=== PATIENT | male | born 1990 | race Caucasian/White ===

== ENCOUNTER 2019-01-06 16:08 | Inpatient (IN) | payer BC ==
[~2019-01-06] VITALS: Ht 167.6 cm; Wt 53.3 kg
[2019-01-06] VITALS (9 sets, daily range): BP systolic 114–131; BP diastolic 63–79
[2019-01-06] MEDS ORDERED: HOLD METFORMIN - RECEIVED CONTRAST 20 ML VIAL IV SCH (16:45)
[2019-01-06] MEDS ORDERED: NS 100 ML (IVPB) BAG IV ONE (16:45)
[2019-01-06] MEDS ORDERED: CATHETER FLUSH 10 ML SYR IV PRN ×2 (16:45→17:00)
[2019-01-06] MEDS ORDERED: IOHEXOL 350 MG/ML 100 ML (OMNIPAQUE 350) VIAL IV ONE (16:45)
[2019-01-06] MEDS ORDERED: HYDROcodone/APAP 7.5 MG/325 MG (LORTAB, LORCET PLUS) TABLET PO PRN (17:00)
[2019-01-06] MEDS ORDERED: ACETAMINOPHEN 325 MG TABLET PO PRN (17:00)
[2019-01-06] MEDS ORDERED: fentaNYL INJECTION 100 MCG/2 ML AMP IV PRN (17:00)
[2019-01-06] MEDS ORDERED: ONDANSETRON 4 MG/2 ML (SDV) Z0FRAN IV PRN (17:00)
[2019-01-06 17:17] LABS: BASOPHILS % (AUTO) 0 % (0-10); EOSINOPHILS % (AUTO) 0 % (0-10); HEMATOCRIT 42 % (40-54); HEMOGLOBIN 14.7 G/DL (13.3-17.7); LYMPHOCYTES # (AUTO) 0.8 X 10^3 (1.0-4.0); LYMPHOCYTES % (AUTO) 9 % (12-44); MEAN CORPUSCULAR HEMOGLOBIN 30 PG (25-34); MEAN CORPUSCULAR HGB CONC 35 G/DL (32-36); MEAN CORPUSCULAR VOLUME 87 FL (80-99); MEAN PLATELET VOLUME 8.9 FL (7.4-10.4); MONOCYTES # (AUTO) 0.7 X 10^3 (0.0-1.0); MONOCYTES % (AUTO) 8 % (0-12); NEUTROPHILS # (AUTO) 7.2 X 10^3 (1.8-7.8); NEUTROPHILS % (AUTO) 83 % (42-75); PLATELET COUNT 159 10^3/uL (130-400); RED CELL DISTRIBUTION WIDTH 12.2 % (10.0-14.5); WHITE BLOOD COUNT 8.7 10^3/uL (4.3-11.0)
[2019-01-06 17:33] LABS: BUN/CREATININE RATIO 11; CALCIUM 9.9 MG/DL (8.5-10.1); CARBON DIOXIDE 28 MMOL/L (21-32); CHLORIDE 101 MMOL/L (98-107); CREATININE SERUM 0.84 MG/DL (0.60-1.30); GFR ESTIMATED > 60; GLUCOSE 99 MG/DL (70-105); POTASSIUM 3.8 MMOL/L (3.6-5.0); SODIUM 140 MMOL/L (135-145)
[2019-01-06] MEDS: CIPROFLOXACIN IV 400MG/200ML 200 ML IV SCH (17:44)
[2019-01-06] MEDS: LACTATED RINGERS 1,000 ML IV SCH ×2 (17:44→23:09)
--- NOTE | 2019-01-06 17:45 | Diagnostic Imaging Report ---
PROCEDURE: CT abdomen and pelvis with contrast, rule out appendicitis. TECHNIQUE: Multiple contiguous axial images were obtained through the abdomen and pelvis after the administration of intravenous contrast. INDICATION: Right lower quadrant pain with nausea, vomiting, and diarrhea. COMPARISON: No comparison is available. FINDINGS: The lung bases are clear. There is no infiltrate or effusion. The liver demonstrates no evidence of a focal intrahepatic abnormality. The gallbladder is nondistended. There are no radiodense gallstones or biliary dilatation. The portal veins are patent. The spleen is unremarkable. Pancreas demonstrates no focal abnormality or ductal dilatation. There is no adrenal mass. The kidneys enhance normally and are nonobstructed. Small and large bowel are normal in caliber without evidence of obstruction. The appendix is abnormally dilated and also contains an appendicolith with adjacent inflammatory fat stranding. There is free fluid within the pelvis. There is no definable encapsulated abscess but the findings are compatible with acute appendicitis and may reflect a ruptured appendix given the pelvic free fluid. Urinary bladder is unremarkable. Prostate is unremarkable. There are no pathologically enlarged lymph nodes. There is no free air. The aorta is normal in caliber. IMPRESSION: 1. Findings compatible with an acute appendicitis. The appendix is abnormally enlarged with mucosal hyperenhancement and adjacent inflammatory fat stranding. There is an appendicolith within the appendix. There is no obstruction or free air. There is free fluid within the pelvis which may reflect a ruptured appendix. There is no encapsulated or definable abscess. Dictated by: Dictated on workstation # [id number]
--- NOTE | 2019-01-06 18:33 | Progress Note-Pre Operative ---
Pre-Operative Progress Note H&P Reviewed The H&P was reviewed, patient examined and no changes noted. Date Seen by Provider: Jan 06, 2019 Time Seen by Provider: 18:00 Date H&P Reviewed: Jan 06, 2019 Time H&P Reviewed: 18:00 Pre-Operative Diagnosis: acute appendicitis DEN BAKER MD Jan 06, 2019 18:33
[2019-01-06] MEDS ORDERED: ROCURONIUM 10 MG/ML 5 ML SYRINGE IV ONE (19:21)
[2019-01-06] MEDS ORDERED: SUCCINYLCHOLINE INJ 100 MG/5 ML SYR ONE (19:21)
[2019-01-06] MEDS ORDERED: proPOfol 200 MG/20 ML (DIPRIVAN) VIAL IV ONE (19:21)
[2019-01-06] MEDS ORDERED: fentaNYL INJECTION 100 MCG/2 ML AMP ONE (19:22)
[2019-01-06] MEDS ORDERED: MIDAZOLAM 2 MG/2 ML (VERSED) VIAL ONE (19:22)
[2019-01-06] MEDS ORDERED: BUP/EPI 0.5% 1:200,000 (SENSORCAINE) 30 ML VIAL ONE (19:24)
[2019-01-06] MEDS ORDERED: SEVOFLURANE (ULTANE) 15 ML INHAL SOLN ONE (19:26)
[2019-01-06] MEDS ORDERED: LIDOCAINE PF 2% 5 ML (XYLOCAINE) VIAL ONE (19:27)
[2019-01-06] MEDS ORDERED: DEXAMETHASONE 10 MG/ML (DECADRON) 1 ML VIAL ONE (19:27)
[2019-01-06] MEDS ORDERED: ONDANSETRON 4 MG/2 ML (SDV) Z0FRAN ONE (19:27)
[2019-01-06] MEDS ORDERED: LACTATED RINGERS 1,000 ML IV PRN (19:47)
[2019-01-06] MEDS: metroNIDAZOLE 500MG/100ML IVPB 100 ML IV SCH (20:15)
[2019-01-06] MEDS ORDERED: NEOSTIGMINE 3 MG/3 ML VIAL ONE (20:30)
[2019-01-06] MEDS ORDERED: GLYCOPYRROLATE 0.2 MG/ML (ROBINUL) 2 ML VIAL ONE (20:30)
[2019-01-06] MEDS ORDERED: KETOROLAC 30 MG/ML VIAL ONE (20:33)
--- NOTE | 2019-01-06 21:01 | Progress Note-Post Operative ---
Post-Operative Progess Note Surgeon (s)/Outgoing Inspector (s) Surgeon DEN BAKER MD Outgoing Inspector: layo zamora ACUTE CARE SURGEON Pre-Operative Diagnosis acute appendicitis Post-Operative Diagnosis same, with walled off microperforation Procedure & Operative Findings Date of Procedure 01/06/19 Procedure Performed/Findings laparoscopic appendectomy Anesthesia Type GET Estimated Blood Loss Estimated blood loss (mL): minimal Specimens/Packing Specimens Removed appendix DEN BAKER MD Jan 06, 2019 21:01
[2019-01-06] MEDS ORDERED: HYDR-34 PO (21:03)
[2019-01-06] MEDS ORDERED: AMOX-358 PO (21:03)
--- NOTE | 2019-01-06 21:06 | Discharge Inst-Surgical ---
D/C Lap Instructions-OLIVIA New, Converted, or Re-Newed RX: RX on Chart Follow Up next week thursday or thursday. Activity as tolerated No driving for 24 hours No driving while on pain medications Incentive Spirometry use every 2 hours while awake Regular Diet Symptoms to Report: Fever over 101 degree F, Nausea/Vomiting Infection Signs and Symptoms to report: Increased redness, Foul odor of wound, Increased drainage Bathing instructions: May shower Operative Area Clean/Dry; Keep incision clean/dry If any problems/questions: Contact your physician or go to Emergency Room DEN BAKER MD Jan 06, 2019 21:05
[2019-01-06] MEDS ORDERED: HYDROmorphone 2 MG/ML VIAL (DILAUDID) IV ONE (21:30)
[2019-01-06] MEDS ORDERED: ONDANSETRON 4 MG/2 ML (SDV) Z0FRAN IVP PRN (21:30)
--- NOTE | 2019-01-06 22:10 | NUR ---
PT. BACK FROM [facility] VIA CART. VITAL SIGNS TAKEN, NO COMPLAINTS AT THIS TIME.
[2019-01-07] VITALS: BP 114/69
[2019-01-07 04:00] VITALS: BP 104/66
[2019-01-07] MEDS: CIPROFLOXACIN IV 400MG/200ML 200 ML IV SCH (04:42)
[2019-01-07] MEDS: metroNIDAZOLE 500MG/100ML IVPB 100 ML IV SCH (06:58)
[2019-01-07 08:02] VITALS: BP 117/70
--- NOTE | 2019-01-07 09:06 | OPERATIVE REPORT ---
DATE OF SERVICE: 01/06/2019 PREOPERATIVE DIAGNOSIS: Acute appendicitis. POSTOPERATIVE DIAGNOSIS: Acute appendicitis with contained perforation. SURGEON: Nessa Baker MD ASSISTANT PROSECUTING ATTORNEY: Kenneth Ogden APRN. PROCEDURE: Laparoscopic appendectomy. ESTIMATED BLOOD LOSS: Minimal. FINDINGS: Acute appendicitis with a microperforation; however, had walled off by the ileocecal fat fold of Treves as well as the cecum and lateral wall of the right peritoneal lining. There was a small amount of fluid within the pelvis. No andrew perforation or soilage. DISPOSITION: The patient tolerated the procedure well. INDICATIONS: The patient is a 28-year-old male who presented with a 2-day history of pain in the right lower abdominal quadrant. Again, he states that this was initially mild; however, did worsen over time. He was seen by his father who is a physician and examined, and found to have pain at McBurney's point. He was started on 650 mg of Tylenol, which did help with his discomfort; however, he did have a reoccurrence of his symptoms. The patient was admitted and a CT scan was performed, which did show dilatation of the appendix as well as periappendiceal inflammation as well as pelvis and the fluid and an appendicolith. This was all consistent with an acute appendicitis. DESCRIPTION OF PROCEDURE: The patient was brought to the operating room, laid supine on the table. After adequate IV pain and sedative medications and general endotracheal intubation, the abdomen was prepped and draped in standard surgical fashion. A 0.5% Marcaine with epinephrine was used to anesthetize the overlying skin in the left upper abdominal quadrant and a transverse skin incision made using 15 blade. An 0 silk suture was applied to the medial aspect of the incision for retraction and a Veress needle inserted with a low opening pressure of 0 mmHg. The abdomen was then insufflated to 15 mmHg pressure. The Veress needle was removed and a 5 mm Xcel trocar placed, followed by a 5 mm 45 degree angle laparoscope visualizing the peritoneal cavity. The appendix was not able to be visualized at this time. We then proceeded to place a supraumbilical 10 mm port after the skin and peritoneal lining were anesthetized using 0.5% Marcaine with epinephrine and a transverse skin incision made using a 15 blade. In a similar manner, a suprapubic 5 mm port was placed. The patient was then placed in Trendelenburg position as well as plane right side up, left side down. We then proceeded with identification of the terminal ileum as well as the cecum. Just behind this was an inflamed appendix, which had been walled off by the terminal ileum, mesentery, cecum as well as the lateral peritoneal wall. This was then gently dissected out. We then proceeded to create a window between the mesoappendix and the base of the appendix at the cecal base. We then proceeded to staple and transect the base of the appendix with a STERLING 2.5 mm thickness load. The mesoappendix was then stapled and transected with a 2.0 mm thickness reload with visualization and good hemostasis. The appendix was removed through the 10 mm port site using an EndoCatch bag. The right lower abdominal quadrant as well as the pelvis was then copiously irrigated and suctioned out. A 15-Urdu Cole-Abreu drain was placed to the area of the staple line as well as into the pelvis and brought out through the suprapubic 5 mm port and sutured to the skin using 3-0 nylon suture. The 10 mm port site fascia and peritoneum were then closed under direct visualization using a Esteban-Niki device and 0 Vicryl suture. The abdomen was desufflated and the remaining ports removed. All skin incisions were closed using 4-0 Monocryl running subcuticular sutures. Wounds were then cleaned and covered with Dermabond. The patient tolerated the procedure well. We will start IV and oral pain medication as well as a clear liquid diet. Once he is tolerating clears, has good pain control with oral pain medication and is afebrile, we will discharge him home. He will be instructed to do no heavy lifting or exertion for the next two weeks. Job ID: [id number] DocumentID: [id number] Dictated Date: 01/06/2019 21:13:09 Podiatric Medicine Professor Date: 01/07/2019 02:30:16 Dictated By: NESSA BAKER MD
--- NOTE | 2019-01-07 09:06 | HISTORY AND PHYSICAL ---
DATE OF SERVICE: 01/06/2019 HISTORY: The patient presented with right lower abdominal quadrant pain starting two days ago. He states that this was initially mild, however, persisted. He described the pain as sharp in nature and did escalate today. He did take 650 mg of Tylenol and states that he felt slightly better; however, he has recurrence of pain in the right lower abdominal quadrant and does have pain upon palpation as well. He does not report any anorexia as well as no fever, no chills. No nausea, no vomiting. PAST MEDICAL HISTORY: None. PAST SURGICAL HISTORY: None. ALLERGIES: No known drug allergies. MEDICATIONS: None. SOCIAL HISTORY: Normal developmental milestones. Negative smoke, social alcohol. FAMILY HISTORY: Noncontributory. REVIEW OF SYSTEMS: A well-nourished male, currently in no acute distress. He is not experiencing any shortness of breath or difficulty breathing. No chest pain, palpitations or diaphoresis. No nausea or vomiting. No diarrhea or constipation. No red blood per rectum. No dark tarry stools. No fever or chills. No recent inadvertent weight loss. All other review of systems are negative. PHYSICAL EXAMINATION: VITAL SIGNS: Stable, afebrile. CHEST: Clear. Good breath sounds bilaterally. HEART: Regular, no murmurs. EXTREMITIES: No lower extremity edema. Negative Homans sign. HEENT: No scleral icterus. NECK: No cervical lymphadenopathy. ABDOMEN: Soft and nondistended. There is pain at McBurney's point in the right lower abdominal quadrant with voluntary guarding. No rebound. SKIN: Warm, dry. ASSESSMENT AND PLAN: Suspected acute appendicitis. We will admit him. IV hydrate and proceed with bowel rest with a clear liquid diet. We will get a CT scan of the abdomen and pelvis with IV contrast as well. The differential includes acute appendicitis; however, terminal ileitis, inflammatory bowel disease, Meckel's diverticulitis cannot be ruled out as well. We will also start him on antibiotics and on this admission, proceed with a diagnostic laparoscopy as well as appendectomy. Job ID: [id number] DocumentID: [id number] Dictated Date: 01/06/2019 16:16:10 Packing Inspector Date: 01/06/2019 16:31:28 Dictated By: DEN BAKER MD
[2019-01-07] MEDS: LACTATED RINGERS 1,000 ML IV SCH (10:56)
--- NOTE | 2019-01-07 10:57 | NUR ---
PT IS TAKING PO WELL -- STOPPED IVFS
--- NOTE | 2019-01-07 11:31 | Progress Note ---
Subjective Date Seen by a Provider: Jan 07, 2019 Time Seen by a Provider: 10:00 Subjective/Events-last exam doing well. pain controlled. tolerating diet. no fever/chills. mild SS drain output. Objective Exam Vital Signs Date Time Temp Pulse Resp B/P (MAP) Pulse Ox O2 Delivery O2 Flow Rate FiO2 01/07/19 08:02 98.7 98 18 117/70 (86) 97 Room Air 2.00 01/07/19 08:00 Room Air 01/07/19 04:00 97.0 88 20 104/66 (79) 93 Nasal Cannula 2.00 01/07/19 00:00 98.3 105 20 114/69 (84) 96 Nasal Cannula 2.00 01/06/19 22:13 98.4 96 18 114/67 (83) 99 Nasal Cannula 2.00 01/06/19 22:10 Nasal Cannula 2 01/06/19 22:00 99.7 16 97 Nasal Cannula 2 01/06/19 21:50 16 94 Nasal Cannula 2 01/06/19 21:45 Room Air 01/06/19 21:40 18 100 OxyMask 10 01/06/19 21:30 16 98 OxyMask 10 01/06/19 21:20 16 99 OxyMask 10 01/06/19 21:12 99.4 16 99 OxyMask 10 01/06/19 21:12 OxyMask 10 01/06/19 19:29 Room Air 01/06/19 16:30 99.6 110 20 126/70 (88) 100 Room Air 01/06/19 16:20 Room Air 01/06/19 16:20 99.6 110 20 126/70 100 Room Air I & O 01/07/19 07:00 Intake Total 2350 ml Output Total 115 ml Balance 2235 ml Capillary Refill : General Appearance: No Apparent Distress HEENT: PERRL/EOMI Neck: Full Range of Motion Respiratory: Chest Non Tender, Lungs Clear, Normal Breath Sounds Cardiovascular: Regular Rate, Rhythm Gastrointestinal: normal bowel sounds, soft, tenderness Extremity: Normal Capillary Refill Neurologic/Psychiatric: Alert, Oriented x3 Skin: Normal Color Lymphatic: No Adenopathy Results Lab Laboratory Tests 01/06/19 17:08: White Blood Count 8.7, Red Blood Count 4.85, Hemoglobin 14.7, Hematocrit 42, Mean Corpuscular Volume 87, Mean Corpuscular Hemoglobin 30, Mean Corpuscular Hemoglobin Concent 35, Red Cell Distribution Width 12.2, Platelet Count 159, Mean Platelet Volume 8.9, Neutrophils (%) (Auto) 83H, Lymphocytes (%) (Auto) 9L, Monocytes (%) (Auto) 8, Eosinophils (%) (Auto) 0, Basophils (%) (Auto) 0, Neutrophils # (Auto) 7.2, Lymphocytes # (Auto) 0.8L, Monocytes # (Auto) 0.7, Eosinophils # (Auto) 0.0, Basophils # (Auto) 0.0, Sodium Level 140, Potassium Level 3.8, Chloride Level 101, Carbon Dioxide Level 28, Anion Gap 11, Blood Urea Nitrogen 9, Creatinine 0.84, Estimat Glomerular Filtration Rate > 60, BUN/Creatinine Ratio 11, Glucose Level 99, Calcium Level 9.9 Assessment/Plan Assessment/Plan Assess & Plan/Chief Complaint s/p lap appy for acute appendicitis and microperf. ambulate. diet as tolerated. f/u in office next week or thu for drain removal. Clinical Quality Measures DVT/VTE Risk/Contraindication: Risk Factor Score Per Nursin RFS Level Per Nursing on Admit: 1=Low/No VTE PPX DEN BAKER MD Jan 07, 2019 11:31
[2019-01-07 11:51] VITALS: BP 117/70
--- NOTE | 2019-01-07 13:53 | Anesthesia-General Post-Op ---
General Post Op Complications Complications None Follow Up Care/Instructions Patient Instructions None needed. Anesthesia/Patient Condition Patient Condition No apparent adverse anesthesia problems. Pt discharged to Home. DEBORAH MADDEN CRNA Jan 07, 2019 13:53
--- NOTE | 2019-01-12 17:02 | Physician Query-Final Dx ---
Final Diagnosis Give Final Diagnosis Please give Final Diagnosis RICK DORSEY Jan 12, 2019 17:02
== END 2019-01-07 12:15 | disposition home or self-care (01) | DRG 340 ==
LOC: 4TH 16:08
PROVIDERS: ADMIT Surgery; ATTEND Surgery
PROC: 0DTJ4ZZ Resection of Appendix, Percutaneous Endoscopic Approach (ICD-10-PCS; principal; 2019-01-06 20:08)
DX: K35.32 Acute appendicitis with perforation, localized peritonitis, and gangrene, without abscess (principal)
CPT/HCPCS: 36415; 74177; 80048; 85025; 87081

== ENCOUNTER 2021-06-13 18:47 | Emergency (ER) | payer OTHER, BC ==
[~2021-06-13] VITALS: Ht 168 cm; Wt 56.7 kg
[~2021-06-13 18:47] MED LIST: AMOX-358 PO; HYDR-34 PO
[2021-06-13 18:57] VITALS: BP 132/72
--- NOTE | 2021-06-13 19:12 | ED Integumentary General ---
General Chief Complaint: Laceration Stated Complaint: RIGHT HAND LAC Source: patient Exam Limitations: no limitations History of Present Illness Date Seen by Provider: Jun 13, 2021 Time Seen by Provider: 19:00 Initial Comments Patient is a 30-year-old male who presents to the emergency department today with a chief complaint of a laceration between his fourth and fifth finger on his right hand at the dorsum of the hand. Patient states he was at work and cut his hand on a tape dispenser. Does not recall his last tetanus. Denies any numbness tingling or weakness in the hand. No recent illnesses. All other review of systems reviewed and negative except as stated. Timing/Duration: just prior to arrival Severity: mild Location: hands (Right hand) Associated Symptoms: denies symptoms Allergies and Home Medications Allergies Coded Allergies: No Known Drug Allergies (Unverified , 01/06/19) Patient Home Medication List Home Medication List Reviewed: Yes No Active Prescriptions or Reported Meds Review of Systems Review of Systems Constitutional: see HPI EENTM: no symptoms reported Respiratory: no symptoms reported Cardiovascular: no symptoms reported Gastrointestinal: no symptoms reported Musculoskeletal: no symptoms reported Skin: other (Laceration right hand) All Other Systems Reviewed Negative Unless Noted: Yes Past Cjqsmky-Jwllzj-Dunrng Hx Patient Social History Tobacco Use?: No Substance use?: No Alcohol Use?: No Pt feels they are or have been: No Immunizations Up To Date First/Initial COVID19 Vaccinat: 10/17 Second COVID19 Vaccination Sundeep: 11/16 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: [employer] Seasonal Allergies Seasonal Allergies: No Past Medical History Surgery/Hospitalization HX: appendectomy Surgeries: No Respiratory: No Cardiac: No Neurological: No Genitourinary: No Gastrointestinal: No Musculoskeletal: No Endocrine: No HEENT: No Cancer: No Psychosocial: No Integumentary: No Blood Disorders: No Physical Exam Vital Signs Vital Signs - First Documented 06/13/21 18:57 Temp 36.3 Pulse 90 Resp 18 B/P (MAP) 132/72 (92) Pulse Ox 99 O2 Delivery Room Air Capillary Refill : General Appearance: WD/WN, no apparent distress Respiratory: no respiratory distress, no accessory muscle use Extremities: normal range of motion, non-tender, normal inspection, normal capillary refill Neurologic/Psychiatric: no motor/sensory deficits, alert, normal mood/affect, oriented x 3 Skin: normal color, warm/dry, other (1cm laceration that involves the skin and subcu tissues at the dorsum of the right hand between the fourth and fifth finger. No active bleeding.; No obvious tendon injury. He is neurovascularly intact to the digits) Procedures/Interventions Wound Location: Upper Extremities (right hand) Other Wound Location between 4th and 5th finger MCP joint Wound's Depth, Shape: superficial, linear Wound Explored: clean Irrigated w/ Saline (ccs): 50 Anesthesia: 1% Lidocaine Volume Anesthetic (ccs): 2 Suture: Prolene Suture Size: 4-0 Number of Sutures: 2 Layer Closure?: 1 Number Deep Layer Sutures: 0 Sterile Dressing Applied?: Yes Progress/Results/Core Measures Results/Orders My Orders Orders - HUSSEIN VERDE MD Dipht,Pertuss(Acell),Tet Adult (Boostrix (06/13/21 19:15) Vital Signs/I&O 06/13/21 18:57 Temp 36.3 Pulse 90 Resp 18 B/P (MAP) 132/72 (92) Pulse Ox 99 O2 Delivery Room Air Departure Impression Primary Impression: Laceration of right hand Qualified Codes: S61.411A - Laceration without foreign body of right hand, initial encounter Disposition: HOME, SELF-CARE Condition: Stable Departure-Patient Inst. Decision time for Depature: 19:11 Referrals: NO,LOCAL PHYSICIAN (PCP/Family) Primary Care Physician Patient Instructions: Laceration Repair With Stitches ED Add. Discharge Instructions: Keep the hand clean, wash it twice a day. You can apply a little Neosporin twice a day for the first 2 days. The stitches will need to come out in 7 to 10 days. Come back to the emergency room if you notice any redness or swelling, drainage from the wound or any other emergent concerning symptoms develop. We have updated your tetanus vaccination today. Scripts No Active Prescriptions or Reported Meds HUSSEIN VERDE MD Jun 13, 2021 19:11
[2021-06-13] MEDS ORDERED: TETANUS,DIPTH,PERTUSS P/F (BOOSTRIX) 0.5 ML VIAL IM ONE (19:15)
== END 2021-06-13 19:39 | disposition home or self-care (01) ==
LOC: EDUNIT# 18:47 → ER 18:49
DX: S61.411A Laceration without foreign body of right hand, initial encounter (principal); Z23 Encounter for immunization; W26.8XXA Contact with other sharp object(s), not elsewhere classified, initial encounter
CPT/HCPCS: 12001; 90715